=== PATIENT | female | born 1945 | race Caucasian/White ===

== ENCOUNTER 2020-04-02 16:14 | Inpatient (IN) | payer MEDICARE, BC ==
[~2020-04-02] VITALS: Ht 162.6 cm; Wt 59.9 kg
[2020-04-02] MEDS ORDERED: CARB100T5 PO (16:45)
[2020-04-02] MEDS ORDERED: LOSA50TA39 PO (16:45)
[2020-04-02] MEDS ORDERED: ATOR10TA PO (16:45)
[2020-04-02] MEDS ORDERED: BLOOD SUGAR DIAGNOSTIC 1 EACH STRIP IN ONE (17:00)
[2020-04-02] MEDS ORDERED: MAGNESIUM HYDROXIDE 30 ML UDC PO PRN (17:00)
[2020-04-02] MEDS ORDERED: ZOLPIDEM TARTRATE 5 MG TABLET PO PRN (17:00)
[2020-04-02] MEDS ORDERED: MAG HYDROX/AL HYDROX/SIMETH 30 ML UDC PO PRN (17:00)
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
[2020-04-02 17:14] VITALS: BP 119/62
--- NOTE | 2020-04-02 18:39 | NUR ---
GPS RN NOTE: SEEN BY LILLIAN DENNIS. MEDICATION RECONCILED
--- NOTE | 2020-04-02 19:30 | NUR ---
GPS RN NOTE, RECEIVED PATIENT AWAKE AND IN BED, NO S/S OR COMPLAINTS OF PAIN AT THIS TIME. PATIENT IS DISPLAYING NO S/S OF APPARENT DISTRESS AT THIS TIME. PATIENT BREATHING IS UNLABORED WITH EQUAL RISE AND FALL OF THE CHEST. PATIENT IS ALERT AND ORIENTED X 1 ON ROOM AIR WITH A SPO2 99%. PATIENT IS COMPLAINT WITH MEDICATIONS, CONFUSED AT TIMES, HYPERVERBAL, NONSENSICAL, AND UNCOOPERATIVE. PATIENT DENIES SUICIDAL AND HOMICIDAL IDEATIONS AT THIS TIME. PATIENT ASSISTED WITH TURNING AND REPOSITIONING Q2HR AND PRN FOR COMFORT AND CIRCULATION. PATIENT HAS NO NEEDS AT THIS TIME. PATIENT EDUCATED ON THE USE OF THE CALL BRAND. PATIENT BED SIDE RAILS UP X 2 FOR SAFETY. PATIENT BED IS LOCKED, LOW, WITH BED ALARM ON. WILL CONTINUE TO MONITOR THIS PATIENT Q15 MINUTES WITH THE HELP OF STAFF TO MAINTAIN SAFETY.
[2020-04-02 20:15] VITALS: BP 119/69
[2020-04-02] MEDS: LORAZEPAM 0.5 MG TABLET PO PRN (20:57)
--- NOTE | 2020-04-02 20:57 | NUR ---
GPS RN NOTE, PATIENT HAS A COMPLAINT OF FEELING ANXIOUS AND IS REQUESTING ATIVAN AT THIS TIME. PATIENT VITAL SIGNS ARE STABLE. GAVE ATIVAN 1 MG PO Q6HR PRN ORDERED. WILL REASSESS FOR ANXIETY AND I WILL CONTINUE TO MONITOR THIS PATIENT.
[2020-04-03] MEDS: ACETAMINOPHEN 325 MG TABLET PO PRN (05:50)
--- NOTE | 2020-04-03 05:50 | NUR ---
GPS RN NOTE, PATIENT HAS A COMPLAINT OF A HEAD ACHE AT 2 OUT 10 ON THE PAIN SCALE AND IS REQUESTING TYLENOL AT THIS TIME. PATIENT VITAL SIGNS ARE STABLE. GAVE TYLENOL 650MG PO Q6HR PRN ORDERED. WILL REASSESS PAIN AND I WILL CONTINUE TO MONITOR THIS PATIENT.
[2020-04-03 06:30] LABS: BASOPHILS % (AUTO) 0.4 % (0.0-2.0); EOSINOPHILS % (AUTO) 1.7 % (0.0-6.0); HEMATOCRIT 33 % (33-45); HEMOGLOBIN 10.8 g/dL (11.5-14.8); LYMPHOCYTES # (AUTO) 1.3 /CMM (0.8-4.8); LYMPHOCYTES % (AUTO) 19.6 % (20.0-44.0); MEAN CORPUSCULAR HGB CONC 33 g/dl (31.0-36.0); MEAN CORPUSCULAR VOLUME 100 fL (82-100); MONOCYTES # (AUTO) 0.6 /CMM (0.1-1.30); MONOCYTES % (AUTO) 8.5 % (2.0-12.0); NEUTROPHILS # (AUTO) 4.7 /CMM (1.8-8.9); NEUTROPHILS % (AUTO) 69.8 % (43.0-81.0); PLATELET COUNT (AUTO) 268 /CMM (150-450); RED BLOOD CELL COUNT(AUTO) 3.29 MIL/uL (4.0-5.2); WHITE BLOOD COUNT (AUTO) 6.7 K/uL (4.3-11.0)
[2020-04-03 06:48] LABS: CHOLESTEROL 168 mg/dL (<200); HDL CHOLESTEROL 76 mg/dL (40-60); LDL 78 mg/dL (0-99); TRIGLYCERIDES 89 mg/dL (30-150)
[2020-04-03 06:57] LABS: ALANINE AMINOTRANSFERASE 68 U/L (12-78); ALBUMIN 3.3 g/dL (3.4-5.0); ALKALINE PHOSPHATASE 93 U/L (46-116); ASPARTATE AMINOTRANSFERASE 63 U/L (15-37); BILIRUBIN,TOTAL 0.1 mg/dL (0.2-1.0); CALCIUM, SERUM 9.3 mg/dL (8.5-10.1); CARBON DIOXIDE 29 mmol/L (21-32); CHLORIDE 107 mmol/L (98-107); CREATININE 1.6 mg/dL (0.6-1.3); GLUCOSE 113 mg/dL (74-106); POTASSIUM 3.6 mmol/L (3.5-5.1); SODIUM SERUM 145 mmol/L (136-145); TOTAL PROTEIN, SERUM 7.1 g/dL (6.4-8.2); UREA NITROGEN, BLOOD 16 mg/dL (7-18)
[2020-04-03 08:00] VITALS: BP 152/72
[2020-04-03] MEDS: LOSARTAN POTASSIUM 50 MG TABLET PO SCH (08:05)
[2020-04-03] MEDS: ATORVASTATIN 10 MG TABLET PO SCH (08:05)
[2020-04-03] MEDS: BENZTROPINE MESYLATE (1 MG) 1 MG TABLET PO SCH ×2 (12:43→17:34)
[2020-04-03] MEDS: HALOPERIDOL 5 MG TABLET PO SCH ×2 (12:44→17:34)
--- NOTE | 2020-04-03 13:20 | NUR ---
Family Contact: OMAIRA called the pts sister, Herson ([phone]), and informed her about all of the placement options for both short term and terminal press operator and provided her with a placement resource. SW then went through the medications with the pts sister as she wanted to make sure that the pt was on the appropriate medications. OMAIRA stated that the pts MD left a voicemail for the SW with the recommended medications and SW stated that she informed the MD.
--- NOTE | 2020-04-03 13:39 | NUR ---
Initial Discharge Plan: Pt currently resides at her home alone located at [address] [place] [address]. Per pt, she would like to return to her home. Per pts sister, Herson ([phone]), she would prefer that the pt get placed in a facility. SW will work with the pt and the MD regarding appropriate discharge planning. SW will form a safe and proper discharge.
[2020-04-03 16:00] VITALS: BP 153/69
[2020-04-03 19:42] VITALS: BP 134/73
[2020-04-03] MEDS: DIVALPROEX SODIUM 250 MG TABLET.DR PO SCH (21:00)
--- NOTE | 2020-04-03 21:34 | NUR ---
GPS RN NOTE: MEDICATION REFUSAL PT. REFUSED SCHEDULED 2100 MEDICATION, DEPAKOTE 250 MG PO. EXPLAINED RISKS AND BENEFITS. OFFERED 3 TIMES AND STILL REFUSED. WILL CONTINUE TO MONITOR FOR SAFETY AND BEHAVIOR
[2020-04-04 08:00] VITALS: BP 148/85
[2020-04-04] MEDS: ENSURE ENLIVE CHOC 237 ML CAN PO SCH ×2 (08:56→16:41)
[2020-04-04] MEDS: BENZTROPINE MESYLATE (1 MG) 1 MG TABLET PO SCH ×2 (08:56→16:41)
[2020-04-04] MEDS: LOSARTAN POTASSIUM 50 MG TABLET PO SCH (08:56)
[2020-04-04] MEDS: DIVALPROEX SODIUM 250 MG TABLET.DR PO SCH ×2 (08:57→21:00)
[2020-04-04] MEDS: ATORVASTATIN 10 MG TABLET PO SCH (08:57)
[2020-04-04] MEDS: HALOPERIDOL 5 MG TABLET PO SCH ×3 (08:57→16:43)
--- NOTE | 2020-04-04 12:58 | NUR ---
GPS RN NOTES PATIENT REFUSED LABS
[2020-04-04 16:00] VITALS: BP 138/91
[2020-04-04 20:16] VITALS: BP 141/83
--- NOTE | 2020-04-04 21:46 | NUR ---
GPS RN NOTE: MEDICATION REFUSAL PT. REFUSED SCHEDULED 2100 MEDICATION DEPAKOTE 250 MG. STATES " I DON'T WANT MEDICINE." EXPLAINED RISKS AND BENEFITS. OFFERED 3X AND STILL REFUSED. WILL CONTINUE TO MONITOR FOR SAFETY AND BEHAVIOR.
[2020-04-05 08:00] VITALS: BP 138/85
[2020-04-05] MEDS: ENSURE ENLIVE CHOC 237 ML CAN PO SCH ×2 (08:42→17:01)
[2020-04-05] MEDS: BENZTROPINE MESYLATE (1 MG) 1 MG TABLET PO SCH ×2 (08:44→17:02)
[2020-04-05] MEDS: HALOPERIDOL 5 MG TABLET PO SCH ×2 (08:44→17:02)
[2020-04-05] MEDS: LOSARTAN POTASSIUM 50 MG TABLET PO SCH (08:46)
[2020-04-05] MEDS: DIVALPROEX SODIUM 250 MG TABLET.DR PO SCH ×2 (08:47→21:00)
[2020-04-05] MEDS: ATORVASTATIN 10 MG TABLET PO SCH (08:47)
--- NOTE | 2020-04-05 10:42 | NUR ---
GPS/RN PT WAS SELECTIVE WITH 0900 MEDS. TOOK HALDOL PO AND COGENTIN PO ONLY. OFFERED X3.
--- NOTE | 2020-04-05 12:00 | NUR ---
GPS/RN DR CORREA MADE AWARE OF PT'S NOT COMPLIANCE WITH MEDS
[2020-04-05 16:00] VITALS: BP 156/70
--- NOTE | 2020-04-05 20:22 | NUR ---
GPS NURSE NOTES: recieved pt sitting in the dining room alert and orientated x3 speech clear talkative talking about her hair and health and cheerfel speech rapid she is smiling and in good spirits reminded me she does not want Depakote tonight so don't try she is allergic to this medication steady as she ambulates
--- NOTE | 2020-04-06 05:10 | NUR ---
CLOSING NOTES: Ms. Knox is friendly for the moment then within minutes verbalizing anger and insulting vocabulary. She multiple times will ask for a phone needing to call her . She ambulates with a fast stride. When asked her to go back to her room she will shout and State "no one tells me what to do". She will go back to her room though. She slept 6 hours through the night. She refused Depakote this HS She states she can't take ativan ambien because she is allergic to them.
[2020-04-06] MEDS: ENSURE ENLIVE CHOC 237 ML CAN PO SCH ×2 (07:57→17:14)
[2020-04-06 08:00] VITALS: BP 155/80
[2020-04-06] MEDS: LOSARTAN POTASSIUM 50 MG TABLET PO SCH (08:06)
[2020-04-06] MEDS: HALOPERIDOL 5 MG TABLET PO SCH ×2 (08:07→17:00)
[2020-04-06] MEDS: ATORVASTATIN 10 MG TABLET PO SCH (08:07)
[2020-04-06] MEDS: DIVALPROEX SODIUM 250 MG TABLET.DR PO SCH ×2 (08:07→21:00)
[2020-04-06] MEDS: BENZTROPINE MESYLATE (1 MG) 1 MG TABLET PO SCH ×2 (08:07→17:00)
--- NOTE | 2020-04-06 08:07 | NUR ---
RN NOTE: MEDICATION REFUSAL PT REFUSED AM COGENTIN, DEPAKOTE, HALDOL AND LIPITOR. EDUCATED PT RE IMPORTANCE OF MEDICATION COMPLIANCE. PT CONTINUED TO REFUSE X 3. PT STAES SHE IS LEAVING TODAY AND IS HERE DUE TO COVID AND "ALL OF THE SEX THAT HAPPENS AROUND HERE". PT STATES SHE HAS [place] IN HER ROOM AND DOES NOT NEED MEDICATIONS..
--- NOTE | 2020-04-06 09:27 | NUR ---
Family Contact: SW called the pts sister, Herson ([phone]), to return her voicemail and left a message stating that the SW will be available to address her questions on conservatorship.
--- NOTE | 2020-04-06 15:59 | NUR ---
Family Contact: Pts sister, Herson ([phone]), called the SW and stated that she wanted [place] and so the SW stated that the potential options such as [facility] and [address]. Pts sister stated that she would look at them and then let the SW know.
[2020-04-06 16:00] VITALS: BP 151/61
--- NOTE | 2020-04-06 16:01 | NUR ---
Individual Intervention: Pt is too disorganized and manic to participate in a meaningful conversation on her discharge planning.
[2020-04-06] MEDS: ACETAMINOPHEN 325 MG TABLET PO PRN (16:39)
--- NOTE | 2020-04-06 16:40 | NUR ---
RN NOTE: PAIN PT C/O 09/16 HEADACHE. MEDICATED WITH TYLENOL 650 MG PO PRN
--- NOTE | 2020-04-06 17:05 | NUR ---
RN NOTE: MEDICATION REFUSAL PT REFUSED 1700 PSYCHIATRIC PO MEDICATIONS. EDUCATED PT RE IMPORTANCE OF MEDICATION COMPLIANCE. PT CONT'D TO REFUSE X 3 .
[2020-04-06 19:43] VITALS: BP 138/72
--- NOTE | 2020-04-06 21:25 | NUR ---
GPS-RN NOTE: MEDICATION REFUSAL PATIENT REFUSED SCHEDULED DEPAKOTE FOR TONIGHT. EDUCATED PATIENT THE IMPORTANCE OF MEDICATION COMPLIANCE. BUT PATIENT CONTINUES TO REFUSE. WILL CONTINUE TO MONITOR.
[2020-04-07] MEDS: LORAZEPAM 0.5 MG TABLET PO PRN (00:51)
--- NOTE | 2020-04-07 00:55 | NUR ---
GPS-RN NOTE: ANXIETY PATIENT IS ANXIOUS, RESTLESS AND LOUD. ADMINISTERED ATIVAN 1MG PO ORDERED. WILL CONTINUE TO MONITOR FOR PATIENT'S SAFETY.
--- NOTE | 2020-04-07 02:32 | NUR ---
GPS-RN NOTE: INSOMNIA PATIENT C/O INABILITY TO SLEEP. ADMINISTERED AMBIEN 5MG PO ORDERED. WILL CONTINUE TO MONITOR.
[2020-04-07] MEDS: ACETAMINOPHEN 325 MG TABLET PO PRN ×2 (06:38→16:20)
--- NOTE | 2020-04-07 06:39 | NUR ---
GPS-RN NOTE: C/O PAIN ON BILATERAL FEET PATIENT C/O PAIN ON HER BILATERAL FEET ON A PAIN SCALE OF 3/10. ADMINISTERED ACETAMINOPHEN 650MG PO ORDERED. WILL CONTINUE TO REASSESS.
[2020-04-07 08:00] VITALS: BP 129/76
--- NOTE | 2020-04-07 08:19 | NUR ---
RN NOTE: NEPHROLOGY CONSULT URINE STUDIES REORDERED AND URINE COLLECTED AND LAB AWARE.
[2020-04-07] MEDS: ENSURE ENLIVE CHOC 237 ML CAN PO SCH ×2 (08:21→16:22)
[2020-04-07] MEDS: LOSARTAN POTASSIUM 50 MG TABLET PO SCH (08:31)
[2020-04-07] MEDS: HALOPERIDOL 5 MG TABLET PO SCH ×3 (08:32→16:19)
[2020-04-07] MEDS: BENZTROPINE MESYLATE (1 MG) 1 MG TABLET PO SCH ×3 (08:32→16:22)
[2020-04-07] MEDS: ATORVASTATIN 10 MG TABLET PO SCH (08:32)
[2020-04-07] MEDS: DIVALPROEX SODIUM 250 MG TABLET.DR PO SCH (08:32)
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
[2020-04-07 08:46] LABS: APPEARANCE,URINE CLEAR (CLEAR); BILIRUBIN,URINE NEGATIVE (NEGATIVE); BLOOD, URINE NEGATIVE Ery/uL (NEGATIVE); COLOR,URINE YELLOW (YELLOW); KETONES,URINE NEGATIVE (NEGATIVE); LEUKOCYTE ESTERASE ,URINE NEGATIVE (NEGATIVE); NITRITE, URINE NEGATIVE (NEGATIVE); PH,URINE 6.5 (5.0-8.0); PROTEIN,URINE NEGATIVE (NEGATIVE); UGLUCOSE NEGATIVE (NEGATIVE); UROBILINOGEN,URINE 0.2 EU/dL (0.2)
[2020-04-07] MEDS: CARBAMAZEPINE 200 MG TABLET PO SCH ×2 (11:07→16:19)
[2020-04-07 11:08] LABS: EOSINOPHIL,URINE None Seen
[2020-04-07 15:14] LABS: CREATININE, URINE 23.9 MG/DL (30.0-125.0); URINE TOTAL PROTEIN 9.4 mg/dL (0-11.9)
[2020-04-07 16:00] VITALS: BP 135/66
--- NOTE | 2020-04-07 16:23 | NUR ---
RN NOTE: AGGRESSIVE BEHAVIOR AND PAIN PT REFUSED COGENTIN. BECAME AGGRESSIVE AND THREATENED TO THROW WATER AT NURSE. PT BEGAN TO YELL. PT. STATED SHE DOES NOT TAKE COGENTIN AND DOES NOT KNOW "WHY IT IS ON THE LIST". WHEN PT EDUCATED RE NEED FOR COGENTIN PT YELLED THAT SHE "KNOWS EVERYTHING ABOUT COGENTIN AND I HAVE TAKEN IT FOR YEARS". PT CONT'D TO REFUSE X 3. PT REQUESTING TYLENOL FOR 3/10 BILAT LOWER EXTREMITY PAIN.
[2020-04-07 19:34] VITALS: BP 149/75
--- NOTE | 2020-04-07 19:58 | NUR ---
GPS RN NOTE: INDIGESTION PT WAS COMPLAINING OF INDIGESTION, ASKED THE PT IF SHE WOULD LIKE TO TRY MAALOX, SHE STATED "YES I TAKE IT AT HOME GIVE IT TO ME" ADMIN MAALOX PRN @ 1953, WILL REASSESS AND CONTINUE TO MONITOR Q15MIN FOR SAFETY AND BEHAVIOR.
[2020-04-08 08:00] VITALS: BP 124/64
[2020-04-08] MEDS: ENSURE ENLIVE CHOC 237 ML CAN PO SCH ×2 (08:00→17:00)
[2020-04-08] MEDS: BENZTROPINE MESYLATE (1 MG) 1 MG TABLET PO SCH ×2 (09:00→09:14)
[2020-04-08] MEDS: ATORVASTATIN 10 MG TABLET PO SCH ×2 (09:14→12:10)
[2020-04-08] MEDS: HALOPERIDOL 5 MG TABLET PO SCH ×3 (09:14→16:56)
[2020-04-08] MEDS: CARBAMAZEPINE 200 MG TABLET PO SCH ×3 (09:14→16:56)
[2020-04-08] MEDS: LOSARTAN POTASSIUM 50 MG TABLET PO SCH (09:15)
[2020-04-08] MEDS ORDERED: BENZTROPINE MESYLATE (1 MG) 1 MG TABLET PO PRN (10:00)
--- NOTE | 2020-04-08 12:11 | NUR ---
IN AM REFUSED HALDOL,TEGRETOL AND LIPITOR.STATED SHE WOULD MAYBE TAKE THESE AFTER THE HEARING,BUT NOW REFUSING ALL [address] CORREA AWARE PT. MAY NOT TAKE MEDS HE WAS PRESENT WHEN RN ADM. MEDS.
[2020-04-08 16:00] VITALS: BP 117/59
[2020-04-08 20:01] VITALS: BP 113/56
[2020-04-08] MEDS: ACETAMINOPHEN 325 MG TABLET PO PRN (21:52)
--- NOTE | 2020-04-08 21:52 | NUR ---
GPS RN NOTE: PT. C/O OF HEADACHE AND REQUESTED TYLENOL. ADMINISTERED TYLENOL 650 MG PO PRN ORDERED. WILL CONTINUE TO MONITOR FOR SAFETY AND BEHAVIOR
[2020-04-09 08:00] VITALS: BP 137/67
[2020-04-09] MEDS: LOSARTAN POTASSIUM 50 MG TABLET PO SCH (08:39)
[2020-04-09] MEDS: HALOPERIDOL 5 MG TABLET PO SCH ×2 (08:40→16:47)
[2020-04-09] MEDS: ATORVASTATIN 10 MG TABLET PO SCH (08:40)
[2020-04-09] MEDS: CARBAMAZEPINE 200 MG TABLET PO SCH ×2 (08:40→16:47)
[2020-04-09] MEDS: ENSURE ENLIVE CHOC 237 ML CAN PO SCH ×2 (08:40→16:48)
[2020-04-09 16:00] VITALS: BP 154/69
[2020-04-09 20:04] VITALS: BP 142/77
[2020-04-09] MEDS: ACETAMINOPHEN 325 MG TABLET PO PRN (21:52)
[2020-04-10 08:00] VITALS: BP 136/64
[2020-04-10] MEDS: ENSURE ENLIVE CHOC 237 ML CAN PO SCH ×2 (08:55→16:54)
[2020-04-10] MEDS: LOSARTAN POTASSIUM 50 MG TABLET PO SCH (08:56)
[2020-04-10] MEDS: ATORVASTATIN 10 MG TABLET PO SCH (09:00)
[2020-04-10] MEDS: HALOPERIDOL 5 MG TABLET PO SCH ×2 (09:00→16:51)
[2020-04-10] MEDS: CARBAMAZEPINE 200 MG TABLET PO SCH ×2 (09:00→16:52)
--- NOTE | 2020-04-10 09:06 | NUR ---
GPS/RN PT REFUSED HALDOL,TEGRETOL AND LIPITOR SCHEDULED FOR 0900. PT STATES THAT SHE MIGHT TAKE TEGRETOL LATER, OFFERED X3.
--- NOTE | 2020-04-10 11:27 | NUR ---
Family Contact: SW called the pts sister, Herson ([phone]), and informed her that the pts writ was granted and that the pt is going to be discharged today. Pts sister stated that she cannot understand how the court could release her. Pts sister asked that the SW provide the pt with aftercare appointments and asked that someone explain the medications to her. SW stated that the treatment team will comply with their roles for discharge planning and will provide the pt with the necessary information.
--- NOTE | 2020-04-10 13:37 | NUR ---
Discharge Note: Pt was discharged to her home located at [address] [place] [id number]. Pt was discharged via taxi at 1:30PM. Pts sister, Herson ([phone]), was aware of the discharge. Upon discharge, pt appears to be in a euthymic mood and presented with a calm affect. Pt denied both suicidal and homicidal ideation as well as auditory and visual hallucinations. Pt appeared to be alert and oriented x4 (time, place, self, and situation). Pt appeared to be ambulatory with a steady gait. Pt appeared to be well groomed and appropriately dressed. Pt will continue to be under the care of psychiatrist, Dr. Yaima Lenz, located at [address] [facility] [address], [place] [address]; and pts economics consultant, Dr. Stephanie De, located at [address] [facility] [address], [place] [address]; . Pt has an appointment on 04/16/20 at 11:30AM. Addendum: 04/10/20 at 1339 by OMAIRA MURILLO OAMIRA provided the pt with [facility] group resources that are taking place on Zoom so the pt can have more support.
--- NOTE | 2020-04-10 13:38 | NUR ---
Psychiatrist Appointment: SW called [facility] Psychiatry and attempted to make an appointment for the pt but the SW had to leave a voicemail requesting an appointment. OMAIRA made two attempts.
[2020-04-10 16:11] VITALS: BP 134/69
--- NOTE | 2020-04-10 17:30 | NUR ---
GPS/RN PT DISCHARGE HOME WITH SISTER PICKING HER UP. PRESCRIPTIONS EXIT CARE INSTRUCTIONS PROVIDED. PT REFUSED TO SIGN D/C PAPERWORK REFUSED PO MEDS TODAY REFUSED PICTURES ON D/C. AWARE. PT WAS RELEASED BY THE COURT TODAY. PROPERTY RETURNED. NO SI OR HI REPORTED AT THE TIME OF DISCHARGE.
== END 2020-04-10 17:30 | disposition home or self-care (01) | DRG 885 ==
LOC: GPS 16:14
PROVIDERS: ADMIT Psychiatry & Neurology Psychiatry; ATTEND Nurse Practitioner Acute Care
DX: F31.2 Bipolar disorder, current episode manic severe with psychotic features (principal); N18.9 Chronic kidney disease, unspecified; N17.0 Acute kidney failure with tubular necrosis; E44.0 Moderate protein-calorie malnutrition; R45.851 Suicidal ideations; F29 Unspecified psychosis not due to a substance or known physiological condition; G47.00 Insomnia, unspecified; F41.9 Anxiety disorder, unspecified; R45.850 Homicidal ideations; E88.09 Other disorders of plasma-protein metabolism, not elsewhere classified; I12.9 Hypertensive chronic kidney disease with stage 1 through stage 4 chronic kidney disease, or unspecified chronic kidney disease; Z68.22 Body mass index [BMI] 22.0-22.9, adult; F39 Unspecified mood [affective] disorder
CPT/HCPCS: 36415; 80053-TC; 80061-TC; 81000-TC; 82570-TC; 84155-TC; 84300-TC; 85025-TC

== ENCOUNTER 2021-01-14 21:00 | Inpatient (IN) | payer MEDICARE, BC ==
[~2021-01-14] VITALS: Ht 162.6 cm; Wt 59.0 kg
[~2021-01-14 21:00] MED LIST: ATOR10TA PO; LOSA50TA39 PO
--- NOTE | 2021-01-14 21:20 | NUR ---
PT HARMEET C/O DTO AND GD, ON 5150 HOLD. FOLLOWS COMMANDS, POOR HISTORIAN. ATTACHED TO MONITOR AND POX. CALL LIGHT WITHIN REACH. SITTER AT BEDSIDE. WILL CONTINUE TO MONITOR.
--- NOTE | 2021-01-14 21:28 | NUR ---
GPS 214-1
--- NOTE | 2021-01-14 21:34 | NUR ---
COVID SWAB SENT TO LAB
[2021-01-14 21:35] LABS: BASOPHILS % (AUTO) 0.3 % (0.0-2.0); EOSINOPHILS % (AUTO) 1.5 % (0.0-6.0); HEMATOCRIT 36 % (33-45); HEMOGLOBIN 11.8 g/dL (11.5-14.8); LYMPHOCYTES # (AUTO) 0.3 K/uL (0.8-4.8); LYMPHOCYTES % (AUTO) 4.5 % (20.0-44.0); MEAN CORPUSCULAR HGB CONC 33 g/dl (31.0-36.0); MEAN CORPUSCULAR VOLUME 102 fL (82-100); MONOCYTES # (AUTO) 0.4 K/uL (0.1-1.30); NEUTROPHILS % (AUTO) 87.7 % (43.0-81.0); PLATELET COUNT (AUTO) 225 K/uL (150-450); RED BLOOD CELL COUNT(AUTO) 3.51 MIL/uL (4.0-5.2); WHITE BLOOD COUNT (AUTO) 6.8 K/uL (4.3-11.0)
[2021-01-14 21:53] LABS: BAND % (MANUAL) 1 % (0.0-5.0); EOSINOPHILS % (MANUAL) 1 % (0-4); LYMPHOCYTES % (MANUAL) 5 % (16-48); MONOCYTES % (MANUAL) 3 % (0-11.0); NEUTROPHILS % (MANUAL) 90 (42-76)
[2021-01-14 21:59] LABS: CALCIUM, SERUM 8.5 mg/dL (8.5-10.1); CARBON DIOXIDE 27 mmol/L (21-32); CHLORIDE 109 mmol/L (98-107); CREATININE 1.5 mg/dL (0.6-1.3); GLUCOSE 107 mg/dL (74-106); POTASSIUM 3.8 mmol/L (3.5-5.1); SODIUM SERUM 145 mmol/L (136-145); UREA NITROGEN, BLOOD 22 mg/dL (7-18)
[2021-01-14 22:05] LABS: ACETAMINOPHEN 0 ug/ml (10-30); ALANINE AMINOTRANSFERASE 30 U/L (12-78); ALBUMIN 3.2 g/dL (3.4-5.0); ALCOHOL, BLOOD < 3 mg/dL (0-0); ALKALINE PHOSPHATASE 98 U/L (46-116); ASPARTATE AMINOTRANSFERASE 20 U/L (15-37); BILIRUBIN,DIRECT 0.1 mg/dL (0.0-0.2); BILIRUBIN,TOTAL 0.4 mg/dL (0.2-1.0); TOTAL PROTEIN, SERUM 6.8 g/dL (6.4-8.2)
--- NOTE | 2021-01-14 22:38 | NUR ---
PER LAB, WOULD TAKE ABOUT 20 MORE MINUTES FOR COVID TEST RESULT.
--- NOTE | 2021-01-14 23:10 | NUR ---
REPORT GIVEN TO MARILU EASTMAN FOR BRANT
--- NOTE | 2021-01-14 23:50 | NUR ---
RN NOTES: NOTIFED CLASS A LINEMAN DR. TORO , REGARDING ABOUT NEW ADMISSION MED RECON.
[2021-01-14 23:58] VITALS: BP 128/80
[2021-01-15] MEDS ORDERED: QUET300T2 PO
[2021-01-15] MEDS ORDERED: ARIP15TA18 PO (00:01)
[2021-01-15] MEDS ORDERED: MAGNESIUM HYDROXIDE 30 ML UDC PO PRN (00:30)
[2021-01-15] MEDS ORDERED: ZOLPIDEM TARTRATE 5 MG TABLET PO PRN (00:30)
[2021-01-15] MEDS ORDERED: BLOOD SUGAR DIAGNOSTIC 1 EACH STRIP IN ONE (00:30)
--- NOTE | 2021-01-15 00:47 | NUR ---
ADMISSION NOTES: ADMITTED THIS 75Y/O FEMALE PATIENT ADMIT FROM [facility] ER/ INTIALLY FROM HOME , ADMITTED TO GPS ON 5150 HOLD, PER HOLD GRAVELY DISABLE, DTO, PER HOLD PT. THROWING THINGS AND NEIGHBORS, NOT SLEEPING ,UPON FACE TO FACE ASSESSMENT PATIENT IS A&O X , 3 ANXIOUS ,DISHELVED ,EASILY GETS AGITATED, DISORGNIZED, UNCOOPERTIVE, NON REDIRDTABLE ,POOR HYGINE REFUSED TO TAKE SHOWER DENIES SI /HI AT THIS TIME, PT. IS POOR HISTORIAN, POOR INSIGHT ,POOR JUDGEMENT , PT. REFUSED TO SIGNS ADMISSION CONSENT PAPERS , DUE TO MENTAL STATUS/ ANXIOUS , PT. REFUSED INTIALLY BLOOD SUGAR CHECK, ENCOURAGED , PT. STRONGLY REFUSED , BOTH MD AWARE AND NOTIFIED OF THE ADMISSION, BELONGINGS CONTRABAND WERE DONE , NURSING ASSESSMENT DONE ,PT. RIGHTS DISCUSS BY ORDER DISPATCHER , PROVIDE THE PT. WITH HANDBOOK, AND MEDICATIONS GUIDE, ENVIRONMENTAL SAFETY CHECK DONE, ENCOURAGED PT. VERBALIZED ANY FEELING CONCERN TO STAFF, ORIENT TO UNIT POLICY, NO ACUTE DISTRESS NOTED,VITAL SIGNS WNL ,DENIES ANY PAIN AT THIS TIME,WILL CONTINUE TO MONITOR FOR Q15 SAFETY AND BEHAVIOR.
--- NOTE | 2021-01-15 06:45 | NUR ---
RN NOTES: PT.DOES NOT WANT TO NOTIFY NEXT OF KIN PEREZ RIOS, PER PT.NON DISCLOSURE OF INFORMATION.
[2021-01-15] MEDS: ENSURE ENLIVE CHOC 237 ML CAN PO SCH ×2 (07:43→18:08)
[2021-01-15 08:00] VITALS: BP 139/72
--- NOTE | 2021-01-15 09:23 | NUR ---
Family Contact: SW called the pts sister, Herson ([phone]), and left a voicemail stating that she would like to speak to her regarding this pts discharge.
--- NOTE | 2021-01-15 10:46 | NUR ---
Initial Discharge Plan: Pt currently resides at her home alone located at [address] [place] [address]. Per pt, she would like to return to her home. Per pts sister, Herson ([phone]), she would prefer that the pt get placed in a facility. SW will work with the pt and the MD regarding appropriate discharge planning. SW will form a safe and proper discharge.
[2021-01-15] MEDS ORDERED: HALOPERIDOL LACTATE INJ 5 MG/ML VIAL IM ONE (11:30)
[2021-01-15] MEDS ORDERED: diphenhydrAMINE HCL 50 MG/ML VIAL IM ONE (11:30)
--- NOTE | 2021-01-15 11:35 | NUR ---
Pt. is aggressive, screaming and yelling to staffs. Dr. Bautista in the unit and ordered Haldol 5 mg IM x1 and Benadryl 25 mg IM x1.
[2021-01-15 15:49] VITALS: BP 131/57
[2021-01-15 20:17] VITALS: BP 142/65
[2021-01-15] MEDS: QUETIAPINE FUMARATE 100 MG TABLET PO SCH (21:49)
[2021-01-16 08:00] VITALS: BP 100/63
[2021-01-16] MEDS: ENSURE ENLIVE CHOC 237 ML CAN PO SCH ×2 (08:04→17:11)
[2021-01-16] MEDS: ARIPIPRAZOLE 5 MG TABLET PO SCH (08:05)
[2021-01-16] MEDS: NICOTINE PATCH (21MG) 21 MG PATCH.TD24 TD SCH (08:05)
[2021-01-16 16:08] VITALS: BP 103/71
[2021-01-16 19:56] VITALS: BP 157/86
[2021-01-16] MEDS: QUETIAPINE FUMARATE 100 MG TABLET PO SCH (21:07)
[2021-01-16] MEDS: LORAZEPAM 1 MG TABLET PO PRN (21:07)
--- NOTE | 2021-01-16 21:10 | NUR ---
COMBATIVE Patient with aggressive behavior, yelling to staff, uncontrolled behavior. Combative, and thrown bathroom cover to the ground. Place patient into the [facility] with safety lap table. PRN Ativan given, will reassess behavior.
[2021-01-17 08:00] VITALS: BP 134/84
[2021-01-17] MEDS: ENSURE ENLIVE CHOC 237 ML CAN PO SCH ×2 (08:23→16:44)
[2021-01-17] MEDS: NICOTINE PATCH (21MG) 21 MG PATCH.TD24 TD SCH (08:23)
[2021-01-17] MEDS: ARIPIPRAZOLE 5 MG TABLET PO SCH (08:23)
[2021-01-17 08:34] LABS: BASOPHILS % (AUTO) 0.5 % (0.0-2.0); EOSINOPHILS % (AUTO) 2.5 % (0.0-6.0); HEMATOCRIT 37 % (33-45); HEMOGLOBIN 12.2 g/dL (11.5-14.8); LYMPHOCYTES # (AUTO) 1.8 K/uL (0.8-4.8); LYMPHOCYTES % (AUTO) 32.3 % (20.0-44.0); MEAN CORPUSCULAR HGB CONC 33 g/dl (31.0-36.0); MEAN CORPUSCULAR VOLUME 101 fL (82-100); MONOCYTES # (AUTO) 0.7 K/uL (0.1-1.30); MONOCYTES % (AUTO) 11.8 % (2.0-12.0); NEUTROPHILS % (AUTO) 52.9 % (43.0-81.0); PLATELET COUNT (AUTO) 240 K/uL (150-450); RED BLOOD CELL COUNT(AUTO) 3.65 MIL/uL (4.0-5.2); WHITE BLOOD COUNT (AUTO) 5.6 K/uL (4.3-11.0)
[2021-01-17 10:31] LABS: CALCIUM, SERUM 9.2 mg/dL (8.5-10.1); CARBON DIOXIDE 29 mmol/L (21-32); CHLORIDE 106 mmol/L (98-107); CREATININE 1.4 mg/dL (0.6-1.3); GLUCOSE 118 mg/dL (74-106); MAGNESIUM 2.4 mg/dL (1.8-2.4); PHOSPHORUS 3.4 mg/dL (2.5-4.9); SODIUM SERUM 145 mmol/L (136-145); UREA NITROGEN, BLOOD 25 mg/dL (7-18)
[2021-01-17 16:00] VITALS: BP 137/90
[2021-01-17] MEDS: ATORVASTATIN 10 MG TABLET PO SCH (18:30)
--- NOTE | 2021-01-17 20:03 | NUR ---
GPS RN OPENING NOTES: RECEIVED PATIENT IN ROOM AMBULATORY, PLACED IN DANIELE CHAIR WITH AGGRESSIVE COMBATIVE BEHAVIOR, VERBALLY ABUSIVE, KEPT ON CLOSE WATCH,CONTINUE TO MONITOR. PATIENT IS FULL CODE, ON CARDIAC DIET, WILL CONTINUE TO MONITOR.
[2021-01-17] MEDS: LORAZEPAM 1 MG TABLET PO PRN (20:23)
[2021-01-17] MEDS: QUETIAPINE FUMARATE 100 MG TABLET PO SCH (21:59)
[2021-01-17 23:01] VITALS: BP 107/59
[2021-01-18] MEDS ORDERED: HALOPERIDOL LACTATE INJ 5 MG/ML VIAL IM STA ×2 (07:58→15:42)
[2021-01-18] MEDS ORDERED: diphenhydrAMINE HCL 50 MG/ML VIAL IJ STA (07:58)
--- NOTE | 2021-01-18 08:04 | NUR ---
GPS RN NOTE: PATIENT EXTREMELY AGITATED, COMBATIVE TO STAFF,THROWING TRAY , REMOVED BATHROOM DOOR ON THE FLOOR , THREATENING, YELLING AND SCREAMING,REFUSED PO MEDICATIONS . DR CORREA NOTIFIED T/O ORDER HALDOL 5 MG IM PRN , BENADRYL 25 MG IM ONCE.ORDER PLACED AND CARED OUT.
[2021-01-18] MEDS: ENSURE ENLIVE CHOC 237 ML CAN PO SCH ×2 (08:25→17:09)
--- NOTE | 2021-01-18 08:25 | NUR ---
RN NOTE: EMERGENCY IM PT BECAME AGITATED AND IRRITABLE. BEGAN THROWING MEAL TRAY AT STAFF. BECAME VERBALLY AGGRESSIVE AND ABUSIVE. THREATENING VIOLENCE TOWARD STAFF. UNABLE TO BE REDIRECTED. OFFERED PO ATIVAN PRN. PT REFUSED. ORDER FROM DR. CORREA FOR HALDOL 5MG AND BENADRYL 25 MG IM. IM ADMINISTERED TO RIGHT GLUTEUS. PT TOLERATED WELL.
[2021-01-18] MEDS: NICOTINE PATCH (21MG) 21 MG PATCH.TD24 TD SCH (09:00)
[2021-01-18] MEDS: LOSARTAN POTASSIUM 50 MG TABLET PO SCH (09:00)
[2021-01-18] MEDS: ATORVASTATIN 10 MG TABLET PO SCH (09:00)
[2021-01-18] MEDS: ARIPIPRAZOLE 5 MG TABLET PO SCH (09:00)
[2021-01-18] MEDS: LORAZEPAM 1 MG TABLET PO PRN ×3 (09:05→21:34)
--- NOTE | 2021-01-18 10:05 | NUR ---
Family Contact: Pts sister, Herson ([phone]), called the SW back and stated that she wanted the SW or the MD to speak to the pts outpatient psychiatrist about their recommendation on medications and the discharge plan. SW stated that the hospital usually recommends that the pt be placed in a SNF and pts sister stated that would be an appropriate placement.
--- NOTE | 2021-01-18 15:06 | NUR ---
RN NOTE: AGGRESSION AND AGITATION PT THROWING WATER AT STAFF, RIPPING DOOR OFF BATHROOM, VERBALLY ABUSIVE TOWARDS STAFF. MEDICATED WITH ATIVAN 1MG PO PRN. WILL MONITOR EFFECTIVENESS OF PRN AND NEED FOR FURTHER MEDICATION.
[2021-01-18] MEDS ORDERED: diphenhydrAMINE HCL 50 MG/ML VIAL IM STA (15:42)
[2021-01-18 16:00] VITALS: BP 104/54
--- NOTE | 2021-01-18 16:01 | NUR ---
RN NOTE: EMERGENCY IM PT VERBALLY AGGRESSIVE. THROWING WATER AT STAFF. GOING INTO OTHER PATIENT'S ROOMS. REPEATEDLY PRESSING CALL LIGHT. VERBALLY THREATENING STAFF. DELUSIONAL. 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 UNABLE TO GET PT OUT OF MALE ROOMS. UNABLE TO BE REDIRECTED AND REORIENTED. BEHAVIOR ESCALATES WHEN ATTEMPTING TO REDIRECT. ORDER FROM DR. CORREA FOR HALDOL 5MG AND BENADRYL 25MG. IM ADMINISTERED TO RIGHT GLUTEUS. PT TOLERATED WELL
[2021-01-18] MEDS: QUETIAPINE FUMARATE 100 MG TABLET PO SCH ×2 (17:09→21:34)
[2021-01-18 20:00] VITALS: BP 94/52
--- NOTE | 2021-01-18 21:34 | NUR ---
GPS RN NOTE PATIENT VERBALLY AGGRESSIVE AND ABUSIVE, YELLING AT RN. PATIENT NOTED WITH PARANOIA, AGITATION, AUDITORY HALLUCINATIONS, AND TALKING TO THE VOICES; NON-DIRECTABLE . MED COMPLIANT. ADMINISTERED ATIVAN ORDERED FOR AGITATION PER RN'S ASSESSMENT. PATIENT REFUSED BED ALARMS TO BE ON. WILL CONTINUE TO MONITOR PATIENT'S BEHAVIOR.
--- NOTE | 2021-01-19 06:02 | NUR ---
GPS RN CLOSING NOTE PT A/OX3 WITH CONFUSION; IN ROOM. TOLERATING ROOM AIR WELL WITH NO SOB. NO S/SX OF PAIN AT THIS TIME. NO ACUTE DISTRESS NOTED. PT IS IN A CALM MOOD AT THIS TIME. NO SI/HI AT THIS TIME. SAFETY MEASYURES IN PLACE: BED IN LOWEST LOCKED POSITION, SIDE RAILS UPX2, REFUSED BED ALARMS. WILL ENDORSE PLAN TO ONCOMING MORNING RN.
[2021-01-19 08:00] VITALS: BP_SYST 104; BP_SYST 131; BP_DIAS 49; BP_DIAS 51
[2021-01-19] MEDS: ARIPIPRAZOLE 5 MG TABLET PO SCH (08:11)
[2021-01-19] MEDS: NICOTINE PATCH (21MG) 21 MG PATCH.TD24 TD SCH (08:11)
[2021-01-19] MEDS: QUETIAPINE FUMARATE 100 MG TABLET PO SCH ×3 (08:11→21:02)
[2021-01-19] MEDS: LOSARTAN POTASSIUM 50 MG TABLET PO SCH (08:12)
[2021-01-19] MEDS: ATORVASTATIN 10 MG TABLET PO SCH (08:13)
[2021-01-19] MEDS: ENSURE ENLIVE CHOC 237 ML CAN PO SCH ×2 (08:17→17:16)
--- NOTE | 2021-01-19 09:00 | NUR ---
RN NOTE- PT LABILE, INTRUSIVE YELLING THOUGH MED COMPLIANT THIS MORNING, PSYCHOTIC AND DELUSIONAL. REQUIRES FREQUENT INTERVENTION REDIRECTION
--- NOTE | 2021-01-19 09:01 | NUR ---
OMAIRA Contact with [facility] back tender insulation board: OMAIRA contacted pts back tender insulation board Darlyn from [facility] program ([phone]). [employer] reported that pt has support when she returns home from her psychiatrist Dr. Chatterjee ([phone]) and psychologist Dr. Pittman ([phone]). OMAIRA informed back tender insulation board that she will keep her updated about pts discharge plan.
--- NOTE | 2021-01-19 11:36 | NUR ---
RN NOTE- PT ESCALATING THROWING THINGS YELLING AND DISRUPTING UNIT. PT INTRUSIVE AND OPPOSITIONAL. REFUSES REDIRECTION. REFUSES PRN RX, DR CORREA NOTIFIED AND ORDERED THORAZINE 50 MG IM STAT. COMPLIED W STAFF ASSIST AND FEMALE RN
--- NOTE | 2021-01-19 14:16 | NUR ---
Contact with [facility]: SW received a call from Miguelito Pena from [facility] ([phone]).SW reported that pts current discharge plan is to discharge back home but there is not discharge date yet. SW will keep APS updated on pts discharge date and plan.
[2021-01-19 16:00] VITALS: BP 138/70
--- NOTE | 2021-01-19 20:00 | NUR ---
GPS RN NOTE PATIENT REFUSED VITAL SIGNS X MULTIPLE ATTEMPTS. PATIENT WITH INCREASED AGITATION AT THIS TIME. WILL CONTINUE TO MONITOR.
[2021-01-19] MEDS: LORAZEPAM 1 MG TABLET PO PRN (21:02)
[2021-01-20 08:00] VITALS: BP 120/66
[2021-01-20] MEDS: ENSURE ENLIVE CHOC 237 ML CAN PO SCH ×2 (08:23→16:33)
[2021-01-20] MEDS: NICOTINE PATCH (21MG) 21 MG PATCH.TD24 TD SCH (08:52)
[2021-01-20] MEDS: QUETIAPINE FUMARATE 100 MG TABLET PO SCH ×3 (08:52→20:58)
[2021-01-20] MEDS: ATORVASTATIN 10 MG TABLET PO SCH (08:52)
[2021-01-20] MEDS: ARIPIPRAZOLE 5 MG TABLET PO SCH (08:53)
[2021-01-20] MEDS: LOSARTAN POTASSIUM 50 MG TABLET PO SCH (08:54)
--- NOTE | 2021-01-20 09:00 | NUR ---
RN NOTE: UNCHANGED. PT LABILE, INTRUSIVE ,MED COMPLIANT THIS MORNING,PSYCHOITIC AND DELUSIONAL. REQUIRES FREQUENT INTERVENTION REDIRECTION
--- NOTE | 2021-01-20 09:29 | NUR ---
SNF Referral: SW faxed a referral to the following two facilities listed below. [facility] with attn to Andrea to the fax number: [phone] [facility] with attn to Ai to the fax number: [phone].
--- NOTE | 2021-01-20 10:07 | NUR ---
SNF Contact: Phillip ([phone]) from [facility] contacted the SW and stated that the pt was accepted to their facility.
--- NOTE | 2021-01-20 11:18 | NUR ---
SNF Contact: NINFA ([phone]) from [facility] contacted the SW and stated that the pt was accepted to their facility.
[2021-01-20 16:00] VITALS: BP 145/83
[2021-01-20 20:18] VITALS: BP 134/69
[2021-01-20] MEDS: MAG HYDROX/AL HYDROX/SIMETH 30 ML UDC PO PRN (20:27)
[2021-01-21 08:00] VITALS: BP 116/59
[2021-01-21] MEDS: ATORVASTATIN 10 MG TABLET PO SCH (08:25)
[2021-01-21] MEDS: NICOTINE PATCH (21MG) 21 MG PATCH.TD24 TD SCH (08:25)
[2021-01-21] MEDS: QUETIAPINE FUMARATE 100 MG TABLET PO SCH ×3 (08:25→22:14)
[2021-01-21] MEDS: ARIPIPRAZOLE 5 MG TABLET PO SCH (08:25)
[2021-01-21] MEDS: ENSURE ENLIVE CHOC 237 ML CAN PO SCH ×2 (08:25→16:28)
[2021-01-21] MEDS: LOSARTAN POTASSIUM 50 MG TABLET PO SCH (08:29)
--- NOTE | 2021-01-21 09:05 | NUR ---
Family Contact: Pts sister, Herson ([phone]), called the SW and stated that she wanted the SW to speak to the MD about writing a letter of incapacity for the pt. SW stated that she would speak to the MD and then call her back.
--- NOTE | 2021-01-21 10:01 | NUR ---
Probable Cause Hearing: Pts 5250 hold was upheld for gravely disabled. Pt was present during the hearing and asked that a Writ be filed on her behalf. SW will file writ.
--- NOTE | 2021-01-21 13:03 | NUR ---
Family Contact: SW called the pts sister, Herson ([phone]), and informed her that the pts MD will not write the letter as the pt is alert and oriented and has the right to make her own decisions. Pts sister asked the SW if the pt can be transferred to an alternate facility but the SW stated that she is already on a 14 day hold and that most facilities will not see the point of a transfer at this point.
--- NOTE | 2021-01-21 16:04 | NUR ---
Writ File: OMAIRA filed a writ for pt on 01/21/2021 and faxed it to [facility] to fax #[phone].
[2021-01-21 16:05] VITALS: BP 130/64
[2021-01-21] MEDS: ACETAMINOPHEN 325 MG TABLET PO PRN (17:04)
[2021-01-21] MEDS: LORAZEPAM 1 MG TABLET PO PRN (20:04)
--- NOTE | 2021-01-21 20:07 | NUR ---
RN NOTES: ANXIETY PT.C/O ANXIETY, PACING IN HALLWAY , PARANOID ,HYPERVERBAL , ANXIOUS , ATIVAN 1 MG PO PRN GIVEN PER PT.REQUEST,WILL CONTINUE TO MONITOR.
[2021-01-21 20:26] VITALS: BP 148/82
--- NOTE | 2021-01-22 07:32 | NUR ---
RN NOTES: REFUSED AM LABS PT. REFUSED AM LABS ,ENCOURAGED X3 RISKS AND BENFITS EXPLINED . PT. STRONGLY REFUSED , PT. BEHAVIOR UNCOOPERATIVE, ENDORSE TO AM NURSE, WILL CONTINUE WITH CARE.
[2021-01-22 08:00] VITALS: BP 140/73
[2021-01-22] MEDS: ENSURE ENLIVE CHOC 237 ML CAN PO SCH ×2 (08:33→16:45)
[2021-01-22] MEDS: LOSARTAN POTASSIUM 50 MG TABLET PO SCH (08:34)
[2021-01-22] MEDS: QUETIAPINE FUMARATE 100 MG TABLET PO SCH ×3 (08:36→22:00)
[2021-01-22] MEDS: NICOTINE PATCH (21MG) 21 MG PATCH.TD24 TD SCH (08:36)
[2021-01-22] MEDS: ARIPIPRAZOLE 5 MG TABLET PO SCH (08:36)
[2021-01-22] MEDS: ATORVASTATIN 10 MG TABLET PO SCH (08:37)
[2021-01-22] MEDS: ACETAMINOPHEN 325 MG TABLET PO PRN ×2 (10:48→20:38)
[2021-01-22 16:00] VITALS: BP 123/71
[2021-01-22] MEDS: MAG HYDROX/AL HYDROX/SIMETH 30 ML UDC PO PRN (16:45)
[2021-01-22 20:59] VITALS: BP 153/81
--- NOTE | 2021-01-22 22:29 | NUR ---
GPS RN NOTES: PATIENT REFUSED 2200 SCHEDULED MEDICATION, SEROQUEL 300MG. PATIENT TOOK MEDICATION FROM STAFF AND THREW IT ON THE FLOOR. PATIENT ALSO REFUSED LABS.
--- NOTE | 2021-01-22 22:31 | NUR ---
GPS RN NOTES: QUETIAPINE 300MG WASTED. PATIENT REFUSED.
[2021-01-23] MEDS: LORAZEPAM 1 MG TABLET PO PRN (04:43)
--- NOTE | 2021-01-23 04:47 | NUR ---
GPS RN NOTES: Patient agitated, restless, banging on door. Refusing redirection. Ativan 1MG/1tab given PO PRN AT 0443. Will continue to monitor.
--- NOTE | 2021-01-23 07:00 | NUR ---
GPS RN NOTES: PATIENT IS AWAKE, A/O X2-3. AMBULATING IN HALLWAY. PATIENT SLEPT 3HR THIS SHIFT. NO S/S OF DISTRESS. RESPIRATION EVEN AND UNLABORED WITH EQUAL RISE AND FALL OF THE CHEST, ON ROOM AIR. ALL PATIENT CARE NEEDS HAVE BEEN MET AT THIS TIME. WILL CONTINUE TO MONITOR Q15MIN FOR SAFETY, MOOD AND BEHAVIOR AND ENDORSE TO AM SHIFT.
[2021-01-23 08:00] VITALS: BP 122/73
[2021-01-23] MEDS: ENSURE ENLIVE CHOC 237 ML CAN PO SCH ×2 (08:48→16:02)
[2021-01-23] MEDS: ARIPIPRAZOLE 5 MG TABLET PO SCH (08:48)
[2021-01-23] MEDS: QUETIAPINE FUMARATE 100 MG TABLET PO SCH ×3 (08:48→21:25)
[2021-01-23] MEDS: NICOTINE PATCH (21MG) 21 MG PATCH.TD24 TD SCH (08:48)
[2021-01-23] MEDS: ATORVASTATIN 10 MG TABLET PO SCH (08:49)
[2021-01-23] MEDS: LOSARTAN POTASSIUM 50 MG TABLET PO SCH (08:49)
[2021-01-23 16:04] VITALS: BP 161/70
[2021-01-23 20:35] VITALS: BP 123/53
[2021-01-23 22:00] VITALS: BP 122/66
[2021-01-23] MEDS: ACETAMINOPHEN 325 MG TABLET PO PRN (22:02)
--- NOTE | 2021-01-23 22:02 | NUR ---
GPS RN NOTE, PATIENT HAS A COMPLAINT OF A HEADACHE AND IS REQUESTING TYLENOL AT THIS TIME. PATIENT VITAL SIGNS ARE STABLE. GAVE TYLENOL 650MG PO Q6HR PRN ORDERED. WILL REASSESS PAIN AND I WILL CONTINUE TO MONITOR THIS PATIENT WITH THE HELP OF STAFF.
[2021-01-24 07:58] VITALS: BP 119/70
[2021-01-24] MEDS: ARIPIPRAZOLE 5 MG TABLET PO SCH (08:12)
[2021-01-24] MEDS: ENSURE ENLIVE CHOC 237 ML CAN PO SCH ×2 (08:12→16:21)
[2021-01-24] MEDS: LOSARTAN POTASSIUM 50 MG TABLET PO SCH (08:12)
[2021-01-24] MEDS: QUETIAPINE FUMARATE 100 MG TABLET PO SCH ×3 (08:13→22:00)
[2021-01-24] MEDS: NICOTINE PATCH (21MG) 21 MG PATCH.TD24 TD SCH (08:13)
[2021-01-24] MEDS: ATORVASTATIN 10 MG TABLET PO SCH (08:13)
--- NOTE | 2021-01-24 09:00 | NUR ---
RN NOTE-PT HYPERVERBAL, INTRUSIVE LOUD AND DISORGANIZED, PT GRANDIOSE AT TIMES AND DELUSIONAL. BIZARRE STATEMENTS AND OFTEN OPPOSITIONAL. CURRENTLY MED COMPLIANT
[2021-01-24] MEDS: LORAZEPAM 1 MG TABLET PO PRN (14:08)
--- NOTE | 2021-01-24 14:11 | NUR ---
RN NOTE- PT A ANXIETY LOUD OUTBURSTS . ATIVAN 1 MG GIVEN
[2021-01-24 15:59] VITALS: BP 136/70
[2021-01-24 20:00] VITALS: BP 116/59
--- NOTE | 2021-01-24 22:01 | NUR ---
GPS RN NOTE PT REFUSED QUETIAPINE 300 MG AT THIS TIME. MEDICATION RETURNED TO [facility].
[2021-01-24] MEDS: MAG HYDROX/AL HYDROX/SIMETH 30 ML UDC PO PRN (22:20)
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
[2021-01-25 08:00] VITALS: BP 125/53
[2021-01-25] MEDS: ENSURE ENLIVE CHOC 237 ML CAN PO SCH ×2 (08:34→08:46)
[2021-01-25] MEDS: NICOTINE PATCH (21MG) 21 MG PATCH.TD24 TD SCH ×2 (08:34→08:47)
[2021-01-25] MEDS: ARIPIPRAZOLE 5 MG TABLET PO SCH ×2 (08:34→08:47)
[2021-01-25] MEDS: QUETIAPINE FUMARATE 100 MG TABLET PO SCH ×2 (08:34→08:47)
[2021-01-25] MEDS: ATORVASTATIN 10 MG TABLET PO SCH ×2 (08:34→08:47)
[2021-01-25 08:35] VITALS: BP 122/53
[2021-01-25] MEDS: LOSARTAN POTASSIUM 50 MG TABLET PO SCH (08:35)
--- NOTE | 2021-01-25 09:00 | NUR ---
RN NOTE-FOCUS ON HEARING, PT HYPERVERBAL, INTRUSIVE LOUD AND DISORGANIZED, PT GRANDIOSE AT TIMES AND DELUSIONAL. BIZARRE STATEMENTS AND OFTEN OPPOSITIONAL. CURRENTLY MED COMPLIANT
--- NOTE | 2021-01-25 10:36 | NUR ---
Writ Hearing: Pts writ was not upheld. Pt will be discharged on 01/25/2021
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
--- NOTE | 2021-01-25 12:16 | NUR ---
Family Contact: SW contacted pts sister Herson ([phone]) and informed her that pt will be discharged at 3:00pm on 01/25/2021. Pts sister reports that pt was an open APS case and would like SW to follow up with APS. SW will follow up with APS regarding pts discharge.
--- NOTE | 2021-01-25 12:19 | NUR ---
Contact with [facility] APS: OMAIRA called Miguelito Pena from [facility] ([phone]) to inform him of pts discharge on 01/25/2021 at 3 pm back to home. APS did not answer, OMAIRA left a voicemail and will follow up at a later time.
--- NOTE | 2021-01-25 12:50 | NUR ---
RN NOTE- PT DC HOME AT THIS TIME VIA AUTOMOBILE AND HER ROOM MATE. PT VALUABLE RETURNED TO PT, DC INSTRUCTIONS REVIEWED W ROOM MATE AND UNDERSTOOD. PRESCRIPTIONS PROVIDED, ID [id number] REMOVED. SKIN INTACT. REFUSED VACCINE. DENIES SI HI [facility]. SW INFORMED THIS RN ABOUT APS W ONGOING FIDUCIARY INVESTIGATION INTO ROOM MATE BUT PT STATES NO SUCH ACTIVITY IS GOING ON. OMAIRA SPOKE W LAWRENCE SHANNON. TOLD TO DC PT PER ORDERS. ASSISTED OFF UNIT BY STAFF.
--- NOTE | 2021-01-25 13:05 | NUR ---
Contact with [facility] APS: OMAIRA called Miguelito Pena from [facility] ([phone]) to inform him of pts discharge on 01/25/2021 at 3 pm back to home. OMAIRA reported that pt will be picked up by her friend and housemate Celeste. Miguelito reports that APS will follow up with pt at her home.
--- NOTE | 2021-01-25 13:06 | NUR ---
Family Contact: SW contacted pts sisterHerson ([phone]) and informed her that pt is going to be picked up by her friend Celeste upon discharge. Pts sister did not answer, SW left a voicemail and will follow up at a later time.
--- NOTE | 2021-01-25 13:07 | NUR ---
Pt interaction: SW followed up with pt and inquired if she would like her friend Celeste to pick her up upon discharge. Pt reports that she willingly wants her friend to pick her up and take her back to her house.
--- NOTE | 2021-01-25 13:10 | NUR ---
Discharge: Pt was discharged to her home located at [address], [address]. Pt was picked up by her friend Celeste at 12:50 pm. SW contacted pts sister Hreson ([phone]), Miguelito from [facility] ([phone]) and pts case finisher Darlyn ([phone]) from [facility] about the discharge. Upon discharge, pt appears to be in an anxious mood. Pt denies suicidal and homicidal ideation and denies visual and auditory hallucinations. Pt appears to be alert and oriented x4 (time, place, self and situation). Pt appears to be ambulatory. Pt will be under the care of psychiatrist Dr. Chatterjee ([phone]) located at [address] [address]. Pts case finisher Darlyn, will assist pt with scheduling an appointment with Dr. Chatterjee once discharged. Pt will follow up with supervisor drying Dr. Misa Saab at [facility] located at [address] [place] [address]. Pt has an appointment on MondayFebruary 01 @ 1:30 pm. The multidisciplinary exit care form was done, printed, signed, and given to the patient.
== END 2021-01-25 12:50 | disposition home or self-care (01) | DRG 885 ==
LOC: ER 21:06 → GPS 21:52
PROVIDERS: ADMIT Psychiatry & Neurology Psychiatry; ATTEND Nurse Practitioner Acute Care
DX: F31.2 Bipolar disorder, current episode manic severe with psychotic features (principal); N17.9 Acute kidney failure, unspecified; N18.9 Chronic kidney disease, unspecified; R45.851 Suicidal ideations; E44.1 Mild protein-calorie malnutrition; F29 Unspecified psychosis not due to a substance or known physiological condition; F41.9 Anxiety disorder, unspecified; Z20.822 Contact with and (suspected) exposure to COVID-19; E78.5 Hyperlipidemia, unspecified; G47.00 Insomnia, unspecified; E88.09 Other disorders of plasma-protein metabolism, not elsewhere classified; Z68.22 Body mass index [BMI] 22.0-22.9, adult; I12.9 Hypertensive chronic kidney disease with stage 1 through stage 4 chronic kidney disease, or unspecified chronic kidney disease; T43.595A Adverse effect of other antipsychotics and neuroleptics, initial encounter; Y92.099 Unspecified place in other non-institutional residence as the place of occurrence of the external cause; R45.850 Homicidal ideations
CPT/HCPCS: 36415; 80048-TC; 80076-TC; 83735-TC; 84100-TC; 85025-TC; 87081-TC; 97116-TC; 97530-TC; G0480; J1200; J1630; J3230